=== PATIENT | male | born 1935 | race Caucasian/White ===

== ENCOUNTER → 2016-06-25 | Outpatient (CLI) | payer MEDICARE, OTHER ==
[~2016-06-25] MED LIST: ACETAMINOPHEN PO; ATORVASTATIN CA80 MG PO; AZITHROMYCIN250 MG PO; CATAPRES-TTS-20.2 MG PO; CATAPRES0.1 MG PO; CLONIDINE PO; CLOPIDOGREL BIS75 MG PO; COREG CR PO; DEPAKOTE ER PO; DEPAKOTE PO; DILTIAZEM 24HR240 M1 PO; DILTIAZEM 24HR240 MG PO; DIVALPROEX SOD500 M1 PO; HYDROCODON-ACE1 EAC9 PO; LIPITOR PO; LISINOPRIL PO; LOPID600 MG PO; LOPRESSOR100 MG PO; METOPROLOL SUC100 MG PO; OLANZAPINE10 MG PO; OLANZAPINE15 MG PO; PLAVIX PO; PRINIVIL40 MG PO; PROTONIX PO; PROZAC PO; RANITIDINE HCL300 MG PO; STOOL SOFTENER50 MG PO; TOPROL XL100 MG PO; ZESTRIL40 MG PO; ZETIA PO; ZYPREXA PO
--- NOTE | ~2016-06-25 | TH ---
Unit #: [id number] #: [id number] Patient: TALIA GARCIA [id number] [address] [address] [id number] O MR#: [id number] NAME: TALIA GARCIA : 1935 SEX: M STUDY DATE/TIME: 06/25/2016 UNIT: [facility] ROOM: STUDY DESCRIPTION: Nuclear study Attending Physician: Kolby Aquino M.D. Primary Care Physician: Torres Steele M.D. CARDIOLOGY REPORT EXAM Nuclear study. FINDINGS Baseline EKG, normal sinus rhythm, nonspecific ST-T changes. Resting heart rate is 92 per minute, blood pressure 146/78. This 81-year-old patient was exercised on a Deyvi protocol for 2 minutes and 30 seconds, achieving a heart rate of 130 per minute. Peak blood pressure was 150/78. Exercise was terminated because of fatigue and no ischemic changes noted. No arrhythmias noted. Blood pressure response was normal. INTERPRETATION 1. Negative exercise test for ischemia. 2. No arrhythmias noted. 3. Normal blood pressure response to exercise. 4. Correlate with the Cardiolite study. EXAM Cardiolite study. DESCRIPTION OF PROCEDURE This 81-year-old patient was exercised on a treadmill. At the peak of the exercise the patient was injected with 34.8 mCi of Technetium 99M Cardiolite and images were obtained according to the standard SPECT protocol. For rest images 11.95 mCi of Cardiolite was injected. Images were reviewed in both phases. Overall study quality is excellent. LV cavity size is normal. In both images there is no lung activity. RV is normal. Rotating raw data showed no significant artifact, soft tissue attenuation or GI uptake. Review of SPECT images showed a severe decrease in radiotracer concentration, medium size inferior segment of the stress images. In the rest images this defect is fixed. Gated images showed a mild hypokinesis of inferior wall of LV with estimated LV ejection fraction 42%. IMPRESSION 1. Myocardial perfusion imaging is abnormal. 2. No evidence of stress induced ischemia. 3. High likelihood of a medium size inferior infarct. 4. Mild hypokinesis of the inferior wall of LV with estimated LV ejection fraction 42%. 5. Normal LV dimensions. Unit #: [id number] #: [id number] Patient: TALIA GARCIA Dictated by... Edgar Bull/omid TD: 06/26/2016 07:51 JOB #: [id number] CARDIOLOGY REPORT Page 1 of 1 X Kalani Montelongo MD CARDIOLOGY REPORT
--- NOTE | ~2016-06-25 | ST ---
Unit #: [id number] #: [id number] Patient: TALIA GARCIA [id number] [address] [address] [id number] O MR#: [id number] NAME: TALIA GARCIA : 1935 SEX: M STUDY DATE/TIME: 06/25/2016 UNIT: [facility] ROOM: STUDY DESCRIPTION: Nuclear stress Attending Physician: Kolby Aquino M.D. Primary Care Physician: Torres Steele M.D. CARDIOLOGY REPORT Result text under nuclear study. Please see this order for result text. Dictated by... Edgar Bull/ts TD: 06/26/2016 08:06 JOB #: [id number] CARDIOLOGY REPORT Page 1 of 1 X Kalani Montelongo MD CARDIOLOGY REPORT
== END | disposition home or self-care (01) ==
LOC: CNUC 08:18
DX: R07.9 Chest pain, unspecified (principal)
CPT/HCPCS: 78452; 93017; A9500